=== PATIENT | male | born 1985 | race Caucasian/White ===

== ENCOUNTER 2023-04-11 08:14 | Day surgery (SDC) | payer OTHER ==
[~2023-04-11] VITALS: Ht 218.4 cm; Wt 61.7 kg
[2023-04-11] MEDS ORDERED: fentaNYL citrate 0.05 MG/ML VIAL ONE (08:55)
[2023-04-11] MEDS ORDERED: MIDAZOLAM 5 MG/5 ML VIAL ONE (08:55)
[2023-04-11] MEDS ORDERED: LIDOCAINE 2% 100 MG/5 ML UJET TP ONE ×2 (08:55→09:45)
[2023-04-11] MEDS ORDERED: fentaNYL citrate 0.05 MG/ML VIAL IVP ONE (09:45)
== END 2023-04-11 10:08 | disposition home or self-care (01) ==
LOC: MDS 08:14 → MMU 08:16 → MDS 10:08
PROVIDERS: ATTEND Internal Medicine Gastroenterology
DX: K62.5 Hemorrhage of anus and rectum (principal); K64.4 Residual hemorrhoidal skin tags; J45.909 Unspecified asthma, uncomplicated; Z90.89 Acquired absence of other organs; Z88.5 Allergy status to narcotic agent; Z91.048 Other nonmedicinal substance allergy status
CPT/HCPCS: 45330; J2250; J3010